=== PATIENT | male | born 1995 | race Caucasian/White ===

== ENCOUNTER 2018-05-08 18:50 | Emergency (ER) | payer MEDICAID ==
[~2018-05-08] VITALS: Ht 172.7 cm; Wt 72.7 kg
[~2018-05-08 18:50] MED LIST: ZOL50T PO
[2018-05-08] MEDS ORDERED: normal saline 1000ML IV soln IVB ONE (19:35)
[2018-05-08] MEDS ORDERED: ketamine 50 mg/ml 10ml vial IV ONE (19:35)
[2018-05-08] MEDS ORDERED: TETanus/Pertussis (Acell)/Diphther VAC/PF (Tdap-Adult) 0.5ml syringe IM ONE (19:40)
[2018-05-08 19:44] LABS: BASOPHILS % (AUTO) 0.3 % (0-1); EOSINOPHILS # (AUTO) 0.1 X10'3 (0-0.9); HEMATOCRIT 41.7 % (42.0-52.0); HEMOGLOBIN 14.7 g/dl (14.0-17.9); LYMPHOCYTES # (AUTO) 1.8 X10'3 (1.1-4.8); LYMPHOCYTES % (AUTO) 25.4 % (21-51); MEAN CORPUSCULAR HEMOGLOBIN 32.7 PG (27.0-31.0); MEAN CORPUSCULAR HGB CONC 35.4 % (33.0-36.5); MEAN CORPUSCULAR VOLUME 92.4 FL (78-98); MEAN PLATELET VOLUME 7.2 FL (7.4-10.4); MONOCYTES # (AUTO) 0.6 X10'3 (0-0.9); MONOCYTES % (AUTO) 8.8 % (2-12); NEUTROPHILS # (AUTO) 4.6 X10'3 (1.8-7.7); NEUTROPHILS % (AUTO) 64.5 % (42-75); PLATELET COUNT 167 X10'3 (140-440); RED BLOOD COUNT 4.51 X10'6 (4.70-6.10); RED CELL DISTRIBUTION WIDTH 13.2 % (11.5-14.5); WHITE BLOOD COUNT 7.1 X10'3 (4.5-11.0)
[2018-05-08 19:50] LABS: PARTIAL THROMBOPLASTIN TIME 28 SECONDS (22-32); PROTHROMBIN TIME 10.8 SECONDS (9.0-12.0)
[2018-05-08 19:54] LABS: ALANINE AMINOTRANSFERASE 56 U/L (12-78); ALBUMIN 4.8 G/DL (3.4-5.0); ALBUMIN/GLOBULIN RATIO 1.4 (1.1-1.5); ALKALINE PHOSPHATASE 74 IU/L (46-116); ANION GAP 17 (8-16); ASPARTATE AMINO TRANSFERASE 22 U/L (10-37); BILIRUBIN,TOTAL 0.8 MG/DL (0.1-1.0); BLOOD UREA NITROGEN 9 MG/DL (7-18); BUN/CREATININE RATIO 8.7 (5.4-32.0); CALCIUM 8.4 MG/DL (8.5-10.1); CHLORIDE 97 MMOL/L (99-107); CREATININE 1.03 MG/DL (0.60-1.10); GLUCOSE 120 MG/DL (70-104); POTASSIUM 3.8 MMOL/L (3.5-5.1); SODIUM 135 MMOL/L (135-145); TOTAL CARBON DIOXIDE 21.2 MMOL/L (24-32); TOTAL PROTEIN 8.3 G/DL (6.4-8.2); eGFR 89 ML/MIN
[2018-05-08 19:55] LABS: ACETAMINOPHEN < 2.0 UG/ML (10-30)
[2018-05-08] MEDS ORDERED: normal saline 1000ml 1,000 ML IV ONE (21:50)
[2018-05-08 22:01] VITALS: BP 157/68
[2018-05-08 22:33] LABS: URINE AMPHETAMINE SCREEN NEGATIVE (Neg); URINE BARBITUATE SCREEN NEGATIVE (Neg); URINE BENZODIAZEPINES SCREEN NEGATIVE (Neg); URINE CANNABINOID SCREEN POSITIVE (Neg); URINE COCAINE SCREEN NEGATIVE (Neg); URINE METHADONE SCREEN NEGATIVE (Neg); URINE OPIATE SCREEN NEGATIVE (Neg); URINE PHENCYCLIDINE SCREEN NEGATIVE (Neg)
== END 2018-05-08 23:05 | disposition home or self-care (01) ==
LOC: ER 18:52
DX: S01.91XA Laceration without foreign body of unspecified part of head, initial encounter (principal); S01.21XA Laceration without foreign body of nose, initial encounter; F10.920 Alcohol use, unspecified with intoxication, uncomplicated; R41.82 Altered mental status, unspecified; F32.9 Major depressive disorder, single episode, unspecified; Z79.899 Other long term (current) drug therapy; W22.8XXA Striking against or struck by other objects, initial encounter; Y93.89 Activity, other specified; Y92.89 Other specified places as the place of occurrence of the external cause; Y99.8 Other external cause status
CPT/HCPCS: 12013; 36415; 70450; 70486; 72125; 80053; 80305; 80320; 80329; 83735; 85025; 85610; 85730; 90471; 90715; 93005; 96374; 99285; J7030

== ENCOUNTER 2018-08-11 16:30 | Emergency (ER) | payer MEDICAID ==
[~2018-08-11] VITALS: Ht 170.2 cm; Wt 61.0 kg
[2018-08-11] MEDS ORDERED: ibuprofen tablet 400 MG TABLET PO ONE (17:00)
[2018-08-11] MEDS ORDERED: LORazepam 1 MG tablet PO ONE (17:00)
[2018-08-11] MEDS ORDERED: LIDOcaine 1.5% w/epinephrine 1:200,000 5ml ampul IJ ONE (17:05)
[2018-08-11 18:32] VITALS: BP 129/83
== END 2018-08-11 18:34 | disposition home or self-care (01) ==
LOC: ER 16:30
DX: S91.311A Laceration without foreign body, right foot, initial encounter (principal); F32.9 Major depressive disorder, single episode, unspecified; W29.3XXA Contact with powered garden and outdoor hand tools and machinery, initial encounter; Y93.89 Activity, other specified; Y92.89 Other specified places as the place of occurrence of the external cause; Y99.8 Other external cause status
CPT/HCPCS: 12002; 73630; 99284; J3490

== ENCOUNTER 2018-12-03 13:14 | Emergency (ER) | payer MEDICAID ==
[~2018-12-03] VITALS: Ht 170.2 cm; Wt 48.0 kg
[2018-12-03 13:32] VITALS: BP 149/80
[2018-12-03] MEDS ORDERED: orphenadrine citrate 60mg/2ml inj. IM ONE (15:30)
[2018-12-03] MEDS ORDERED: IBUP-1985 PO (15:50)
[2018-12-03] MEDS ORDERED: METH-360 PO (15:50)
== END 2018-12-03 16:06 | disposition home or self-care (01) ==
LOC: ER 13:15
DX: M54.5 Low back pain (principal); Z79.899 Other long term (current) drug therapy; W01.0XXA Fall on same level from slipping, tripping and stumbling without subsequent striking against object, initial encounter; Y93.89 Activity, other specified; Y92.89 Other specified places as the place of occurrence of the external cause; Y99.8 Other external cause status
CPT/HCPCS: 72100; 96372; 99283; J2360